=== PATIENT | female | born 1995 | race Caucasian/White ===

== ENCOUNTER 2017-07-04 21:22 | Emergency (ER) | payer OTHER ==
[~2017-07-04] VITALS: Ht 165.1 cm; Wt 86.2 kg
[~2017-07-04 21:22] MED LIST: ACETAMINOPHEN500 MG PO; ACYC400 PO; AMOCLA875 PO; ASPI81CH PO; Amoxicillin500 MG PO; Ativan1 MG PO; BCP'S; BIRTH CONTROL; BIRTH CONTROL PATCH; BRAIN MIGHT-DH1 EACH PO; BUSP5 PO; Bentyl20 MG PO; CEPH500 PO; CIPR500 PO; CLON.5 PO; CODACE30 PO; CRUTCH2 USE; CYCL10 PO; DIPATR PO; DIPH50 PO; DULO30 PO; Doxycycline Mon50 MG PO; ESCI10 PO; ESCI20 PO; FERR325 PO; FURO20 PO; HYDACE5 PO; HYDACE5325 PO; HYDCOR1TC TOP; IBUP400 PO; IBUP600 PO; IBUP800 PO; IRON DAILY; IRON TABS; IRON150C; IRON150C PO; LEVSOD150 PO; META800 PO; MULVITA PO; MULVITMINE PO; NAPR500; NAPR500 PO; NEOPOLHCSU OT; NORETHTP TOP; Naprosyn500 MG PO; Norco 5-325 Ta1 EACH PO; OMEP20ER PO; OMEP40CA12 PO; ONDA4 PO; ONDA4ODT MM; ONDA8ODT MM; OXYACE5T PO; PENVK500 PO; POTA8 PO; PREN-16 PO; PROM25 PO; PROM25S PR; Percocet 5-3251 EACH PO; RANI150 PO; RXCODACET PO; RXHYD5325 PO; RXNEOPOLHC AD; RXOXYACE PO; RXPROM25 PO; SERT100; SERT50 PO; TRAM50 PO; TRAZ50 PO; Veetids 500500 MG PO; Verotin-Gr Cap1 EACH PO; Zofran Odt4 MG SL
[2017-07-04] MEDS ORDERED: PSEU120ER PO (22:42)
[2017-07-05] MEDS ORDERED: CEPH500 PO (16:15)
== END 2017-07-04 22:58 | disposition home or self-care (01) ==
LOC: ER 21:22
DX: J01.00 Acute maxillary sinusitis, unspecified (principal); Z88.8 Allergy status to other drugs, medicaments and biological substances
CPT/HCPCS: 96372; 99283; J1885; Q0163

== ENCOUNTER 2017-07-05 12:28 | Emergency (ER) | payer OTHER ==
[~2017-07-05] VITALS: Ht 165.1 cm; Wt 86.2 kg
[~2017-07-05 12:28] MED LIST changes: +PSEU120ER PO
[2017-07-05 15:14] LABS: BASOPHILS ABSOLUTE AUTO 0.02 K/mm3 (0.00-0.23); BASOPHILS PERCENT AUTO 0 % (0-2); EOSINOPHILS ABSOLUTE AUTO 0.08 K/mm3 (0.00-0.68); EOSINOPHILS PERCENT AUTO 1 % (0-6); Hematocrit 35.5 % (33.0-51.0); Hemoglobin 11.3 g/dL (11.5-16.0); IMMATURE GRAN ABSOLUTE AUTO 0.02 K/mm3 (0.00-0.10); IMMATURE GRAN PERCENT AUTO 0 % (0-1); LYMPHOCYTES ABSOLUTE AUTO 1.78 K/mm3 (0.84-5.20); LYMPHOCYTES PERCENT AUTO 27 % (21-46); MONOCYTES ABSOLUTE AUTO 0.38 K/mm3 (0.16-1.47); MONOCYTES PERCENT AUTO 6 % (4-13); Mean Corpuscular HGB 27.8 pg (26.0-34.0); Mean Corpuscular HGB Conc 31.8 g/dL (31.5-36.5); Mean Corpuscular Volume 87 fL (80-100); Mean Platelet Volume 9.7 fL (9.1-12.4); NEUTROPHILS ABSOLUTE AUTO 4.38 K/mm3 (1.96-9.15); NEUTROPHILS PERCENT AUTO 66 % (41-73); Platelet Count 398 K/mm3 (150-400); RDW Standard Deviation 41.9 fL (35.1-46.3); Red Blood Cell Count 4.06 M/mm3 (3.80-5.20); White Blood Cell Count 6.66 K/mm3 (4.00-11.30)
[2017-07-05 15:24] LABS: Anion Gap 4 mmol/L (6-16); Blood Urea Nitrogen 6 mg/dL (8-24); Bun/Creatinine Ratio 10.7 (12.0-20.0); CO2, Blood 27 mmol/L (21-32); Calcium, Blood 8.7 mg/dL (8.5-10.1); Chloride, Blood 112 mmol/L (98-108); Creatinine, Blood 0.56 mg/dL (0.40-1.00); Glomerular Filtration Rate >60 (60-); Glucose, Blood 81 mg/dL (70-99); Potassium, Blood 3.9 mmol/L (3.5-5.5); Sodium, Blood 143 mmol/L (136-145)
[2017-07-05] MEDS ORDERED: CEPH500 PO (16:15)
== END 2017-07-05 16:43 | disposition home or self-care (01) ==
LOC: ER 12:28
PROVIDERS: Physician Assistant
DX: L03.211 Cellulitis of face (principal); K02.9 Dental caries, unspecified; Z88.8 Allergy status to other drugs, medicaments and biological substances
CPT/HCPCS: 70487; 80048; 85025; 96361; 96374; 99284; J1885; J7030; Q9967

== ENCOUNTER → 2017-07-25 | Outpatient (CLI) | payer OTHER | END | disposition home or self-care (01) | LOC: LAB EV 12:00 → LAB SHORT 12:00 | DX: J02.9 Acute pharyngitis, unspecified (principal) | CPT/HCPCS: 87070 ==

== ENCOUNTER 2017-08-27 17:32 | Emergency (ER) | payer OTHER ==
[~2017-08-27] VITALS: Ht 165.1 cm; Wt 91.6 kg
[2017-08-27 18:25] LABS: BASOPHILS ABSOLUTE AUTO 0.03 K/mm3 (0.00-0.23); BASOPHILS PERCENT AUTO 0 % (0-2); EOSINOPHILS ABSOLUTE AUTO 0.06 K/mm3 (0.00-0.68); EOSINOPHILS PERCENT AUTO 1 % (0-6); Hematocrit 34.8 % (33.0-51.0); Hemoglobin 11.2 g/dL (11.5-16.0); IMMATURE GRAN ABSOLUTE AUTO 0.01 K/mm3 (0.00-0.10); IMMATURE GRAN PERCENT AUTO 0 % (0-1); LYMPHOCYTES ABSOLUTE AUTO 1.97 K/mm3 (0.84-5.20); LYMPHOCYTES PERCENT AUTO 22 % (21-46); MONOCYTES ABSOLUTE AUTO 0.55 K/mm3 (0.16-1.47); MONOCYTES PERCENT AUTO 6 % (4-13); Mean Corpuscular HGB 26.4 pg (26.0-34.0); Mean Corpuscular HGB Conc 32.2 g/dL (31.5-36.5); NEUTROPHILS ABSOLUTE AUTO 6.26 K/mm3 (1.96-9.15); NEUTROPHILS PERCENT AUTO 71 % (41-73); Platelet Count 342 K/mm3 (150-400); RDW Coefficient Variation 13.5 % (11.7-14.2); RDW Standard Deviation 40.1 fL (35.1-46.3); Red Blood Cell Count 4.24 M/mm3 (3.80-5.20); White Blood Cell Count 8.88 K/mm3 (4.00-11.30)
[2017-08-27 18:30] LABS: Mean Corpuscular Volume 82 fL (80-100)
[2017-08-27 18:51] LABS: Source, Urine Clean Catch
[2017-08-27 18:52] LABS: Alanine Aminotransfer (ALT/SGP 19 U/L (12-78); Albumin, Blood 4.1 g/dL (3.4-5.0); Alk Phos 78 U/L (50-136); Anion Gap 11 mmol/L (6-16); Aspartate Aminotrans (AST/SGOT 17 U/L (12-37); Bilirubin, Total 0.3 mg/dL (0.1-1.0); Blood Urea Nitrogen 6 mg/dL (8-24); Bun/Creatinine Ratio 12.3 (12.0-20.0); CO2, Blood 24 mmol/L (21-32); Calcium, Blood 9.1 mg/dL (8.5-10.1); Chloride, Blood 105 mmol/L (98-108); Creatinine, Blood 0.49 mg/dL (0.40-1.00); Globulin, Blood 4.1 g/dL (2.2-4.0); Glomerular Filtration Rate >60 (60-); Glucose, Blood 79 mg/dL (70-99); Potassium, Blood 3.2 mmol/L (3.5-5.5); Sodium, Blood 140 mmol/L (136-145); Total Protein, Blood 8.2 g/dL (6.4-8.2)
[2017-08-27 18:53] LABS: Bilirubin, Urine Neg (Neg); Blood, Urine 2+ (Neg); Glucose Qualitative, Urine Neg (Neg); Ketones, Urine 1+ (Neg); Leukocyte Esterase, Urine Neg (Neg); Nitrite, Urine Neg (Neg); Protein, Urine 1+ (Neg); Specific Gravity, Urine 1.025 (1.003-1.022); Urobilinogen, Urine NORM (Normal)
[2017-08-27 19:02] LABS: Appearance, Urine Cloudy (Clear); Color, Urine Yellow (P-Yellow)
[2017-08-27 19:03] LABS: Mucus Light (0-Heavy)
[2017-08-27 19:04] LABS: Bacteria Rare /hpf; Red Blood Cells, Urine 0-2 /hpf (0-2); Squamous Epithelial Cells Few /hpf (Few); White Blood Cells, Urine 0-2 /hpf (0-5)
[2017-08-27 19:17] LABS: Beta HCG, Quantitative, Serum 58324 mIU/mL (0-3)
== END 2017-08-27 22:15 | disposition home or self-care (01) ==
LOC: ER 17:32
PROVIDERS: Internal Medicine
DX: O20.9 Hemorrhage in early pregnancy, unspecified (principal); Z88.8 Allergy status to other drugs, medicaments and biological substances; Z3A.08 8 weeks gestation of pregnancy
CPT/HCPCS: 36415; 76801; 80053; 81001; 84702; 85025; 86900; 86901; 99284

== ENCOUNTER 2017-10-07 22:29 | Emergency (ER) | payer OTHER ==
[~2017-10-07] VITALS: Ht 165.1 cm; Wt 90.7 kg
[~2017-10-07 22:29] MED LIST changes: -IRON INFUSIONS
[2017-10-07] MEDS ORDERED: IRON INFUSIONS (22:51)
[2017-10-07 23:34] LABS: BASOPHILS ABSOLUTE AUTO 0.03 K/mm3 (0.00-0.23); BASOPHILS PERCENT AUTO 0 % (0-2); EOSINOPHILS ABSOLUTE AUTO 0.11 K/mm3 (0.00-0.68); EOSINOPHILS PERCENT AUTO 2 % (0-6); Hematocrit 32.8 % (33.0-51.0); Hemoglobin 10.6 g/dL (11.5-16.0); IMMATURE GRAN ABSOLUTE AUTO 0.01 K/mm3 (0.00-0.10); IMMATURE GRAN PERCENT AUTO 0 % (0-1); LYMPHOCYTES ABSOLUTE AUTO 2.24 K/mm3 (0.84-5.20); LYMPHOCYTES PERCENT AUTO 30 % (21-46); MONOCYTES ABSOLUTE AUTO 0.38 K/mm3 (0.16-1.47); MONOCYTES PERCENT AUTO 5 % (4-13); Mean Corpuscular HGB Conc 32.3 g/dL (31.5-36.5); Mean Corpuscular Volume 84 fL (80-100); NEUTROPHILS ABSOLUTE AUTO 4.65 K/mm3 (1.96-9.15); NEUTROPHILS PERCENT AUTO 63 % (41-73); Platelet Count 291 K/mm3 (150-400); RDW Standard Deviation 45.5 fL (35.1-46.3); Red Blood Cell Count 3.92 M/mm3 (3.80-5.20); White Blood Cell Count 7.42 K/mm3 (4.00-11.30)
[2017-10-07 23:53] LABS: Anion Gap 10 mmol/L (6-16); Blood Urea Nitrogen 5 mg/dL (8-24); Bun/Creatinine Ratio 13.5 (12.0-20.0); CO2, Blood 22 mmol/L (21-32); Calcium, Blood 8.5 mg/dL (8.5-10.1); Chloride, Blood 109 mmol/L (98-108); Creatinine, Blood 0.37 mg/dL (0.40-1.00); Glomerular Filtration Rate >60 (60-); Glucose, Blood 83 mg/dL (70-99); Potassium, Blood 3.2 mmol/L (3.5-5.5); Sodium, Blood 141 mmol/L (136-145)
[2017-10-08 00:37] LABS: Source, Urine Clean Catch
[2017-10-08 00:45] LABS: Bilirubin, Urine Neg (Neg); Blood, Urine 1+ (Neg); Glucose Qualitative, Urine Neg (Neg); Ketones, Urine Neg (Neg); Leukocyte Esterase, Urine Neg (Neg); Nitrite, Urine Neg (Neg); Protein, Urine 1+ (Neg); Specific Gravity, Urine 1.025 (1.003-1.022); Urobilinogen, Urine NORM (Normal)
[2017-10-08 00:47] LABS: Appearance, Urine Clear (Clear); Color, Urine Yellow (P-Yellow)
[2017-10-08 01:04] LABS: Bacteria Rare /hpf; Red Blood Cells, Urine 0-2 /hpf (0-2); Squamous Epithelial Cells Few /hpf (Few); White Blood Cells, Urine Rare /hpf (0-5)
[2017-10-09] MEDS ORDERED: CYCL10 PO (20:44)
[2017-10-09] MEDS ORDERED: Verotin-Gr Cap1 EACH PO (20:44)
== END 2017-10-08 01:26 | disposition home or self-care (01) ==
LOC: ER 22:29
PROVIDERS: Emergency Medicine
DX: O99.281 Endocrine, nutritional and metabolic diseases complicating pregnancy, first trimester (principal); E87.6 Hypokalemia; E86.0 Dehydration; Z3A.14 14 weeks gestation of pregnancy; Z88.8 Allergy status to other drugs, medicaments and biological substances; Z79.899 Other long term (current) drug therapy
CPT/HCPCS: 36415; 80048; 81001; 85025; 96360; 99284-25; J7030

== ENCOUNTER → 2017-10-07 | Outpatient (CLI) | payer OTHER ==
[~2017-10-07] MED LIST changes: +IRON INFUSIONS
== END | disposition home or self-care (01) ==
LOC: LAB 13:05 → LAB SHORT 13:05
DX: D50.9 Iron deficiency anemia, unspecified (principal)
CPT/HCPCS: 82607; 82746

== ENCOUNTER 2017-10-09 20:24 | Emergency (ER) | payer OTHER ==
[~2017-10-09] VITALS: Ht 162.6 cm; Wt 90.3 kg
[~2017-10-09 20:24] MED LIST changes: +IRON INFUSIONS
[2017-10-09] MEDS ORDERED: Verotin-Gr Cap1 EACH PO (20:44)
[2017-10-09] MEDS ORDERED: CYCL10 PO (20:44)
== END 2017-10-09 21:42 | disposition home or self-care (01) ==
LOC: ER 20:24
DX: O9A.212 Injury, poisoning and certain other consequences of external causes complicating pregnancy, second trimester (principal); S60.221A Contusion of right hand, initial encounter; Z88.8 Allergy status to other drugs, medicaments and biological substances; Z79.899 Other long term (current) drug therapy; Z3A.14 14 weeks gestation of pregnancy; W01.0XXA Fall on same level from slipping, tripping and stumbling without subsequent striking against object, initial encounter; Y92.002 Bathroom of unspecified non-institutional (private) residence as the place of occurrence of the external cause
CPT/HCPCS: 73130

== ENCOUNTER 2017-11-08 15:02 | Emergency (ER) | payer OTHER ==
[~2017-11-08] VITALS: Ht 162.6 cm; Wt 90.7 kg
[2017-11-08 16:23] LABS: Hematocrit 35.3 % (33.0-51.0); Hemoglobin 11.7 g/dL (11.5-16.0); Mean Corpuscular HGB 28.5 pg (26.0-34.0); Mean Corpuscular HGB Conc 33.1 g/dL (31.5-36.5); Mean Corpuscular Volume 86 fL (80-100); Mean Platelet Volume 9.9 fL (9.1-12.4); Platelet Count 269 K/mm3 (150-400); RDW Coefficient Variation 15.6 % (11.7-14.2); White Blood Cell Count 8.52 K/mm3 (4.00-11.30)
[2017-11-08 16:38] LABS: Anion Gap 10 mmol/L (6-16); Blood Urea Nitrogen 4 mg/dL (8-24); Bun/Creatinine Ratio 10.9 (12.0-20.0); CO2, Blood 22 mmol/L (21-32); Calcium, Blood 8.6 mg/dL (8.5-10.1); Chloride, Blood 106 mmol/L (98-108); Creatinine, Blood 0.37 mg/dL (0.40-1.00); Glomerular Filtration Rate >60 (60-); Glucose, Blood 75 mg/dL (70-99); Potassium, Blood 3.6 mmol/L (3.5-5.5); Sodium, Blood 138 mmol/L (136-145); Troponin I <0.015 ng/mL (0.000-0.040)
== END 2017-11-08 16:54 | disposition home or self-care (01) ==
LOC: ER 15:02
PROVIDERS: Emergency Medicine
DX: R07.9 Chest pain, unspecified (principal)
CPT/HCPCS: 36415; 80048; 84484; 85027; 93005; 93010; 99285-25

== ENCOUNTER 2017-12-23 20:57 | Emergency (ER) | payer OTHER ==
[~2017-12-23] VITALS: Ht 160 cm; Wt 90.7 kg
[~2017-12-23 20:57] MED LIST changes: +Augmentin 875-1 EACH PO; +LORA.5
== END 2017-12-23 23:39 | disposition home or self-care (01) ==
LOC: BC 20:57 → ER 20:57
DX: O99.89 Other specified diseases and conditions complicating pregnancy, childbirth and the puerperium (principal); M79.89 Other specified soft tissue disorders; O99.342 Other mental disorders complicating pregnancy, second trimester; F32.9 Major depressive disorder, single episode, unspecified; F41.9 Anxiety disorder, unspecified; Z88.8 Allergy status to other drugs, medicaments and biological substances; Z79.899 Other long term (current) drug therapy; Z3A.21 21 weeks gestation of pregnancy
CPT/HCPCS: 81003; 93971; 99284-25

== ENCOUNTER 2018-03-29 05:18 | Inpatient (IN) | payer OTHER ==
[~2018-03-29] VITALS: Ht 162.6 cm; Wt 96.6 kg
[~2018-03-29 05:18] MED LIST changes: +Bactrim Ds Tab1 EACH PO; +FLUO10 PO; +Zithromax250 MG PO
[2018-03-29 06:40] LABS: BASOPHILS ABSOLUTE AUTO 0.04 K/mm3 (0.00-0.23); BASOPHILS PERCENT AUTO 0 % (0-2); EOSINOPHILS ABSOLUTE AUTO 0.51 K/mm3 (0.00-0.68); EOSINOPHILS PERCENT AUTO 4 % (0-6); Hematocrit 33.9 % (33.0-51.0); Hemoglobin 10.9 g/dL (11.5-16.0); IMMATURE GRAN ABSOLUTE AUTO 0.03 K/mm3 (0.00-0.10); IMMATURE GRAN PERCENT AUTO 0 % (0-1); LYMPHOCYTES PERCENT AUTO 23 % (21-46); MONOCYTES ABSOLUTE AUTO 0.98 K/mm3 (0.16-1.47); MONOCYTES PERCENT AUTO 8 % (4-13); Mean Corpuscular HGB 27.5 pg (26.0-34.0); Mean Corpuscular HGB Conc 32.2 g/dL (31.5-36.5); Mean Corpuscular Volume 86 fL (80-100); Mean Platelet Volume 11.2 fL (9.1-12.4); NEUTROPHILS ABSOLUTE AUTO 7.95 K/mm3 (1.96-9.15); NEUTROPHILS PERCENT AUTO 64 % (41-73); Platelet Count 426 K/mm3 (150-400); RDW Coefficient Variation 13.3 % (11.7-14.2); RDW Standard Deviation 42.3 fL (35.1-46.3); Red Blood Cell Count 3.96 M/mm3 (3.80-5.20); White Blood Cell Count 12.41 K/mm3 (4.00-11.30)
--- NOTE | 2018-03-29 08:29 | NUR ---
03/29/18 0829 Sravanthi Stokes Kit BABY BOY BORN 0814 FIRST AND SECOND 9 9. CORD BLOOD GIVEN TO NEWTON ROSAS FBP. DR BAXTER DID NOT DESIRE A SEGMENT OF CORD TO BE SENT WITH RT.
--- NOTE | 2018-03-29 10:39 | NUR ---
CONSULT, BABY IS ONLY A FEW HOURS OLD, BFW AFTER AND IS CURRENTLY ASLEEP SKIN TO SKIN ON MOMS CHEST. SHE HAS A HISTORY OF ONLY BF HER BABY'S ABOUT 1 MONTH OR LESS, AND WOULD LIKE TO BF THIS BABY LONGER. INSTRUCT IN CHANGES TO EXPECT DURING THIS FIRST WEEK WITH FEEDINGS AND WITH BABY AND REFERRED TO BF BROCHURE FOR PHOTOS AND INFORMATION. WILL TRY AND CHECK IN WITH MOM LATER TODAY TO SEE HOW HE IS LATCHING FOR HER. DENIES ANY QUESTIONS CURRENTLY.
--- NOTE | 2018-03-29 12:44 | NUR ---
PT WRITHING IN PAIN. STATES IT REMAINS AT 10/10 EVEN THOUGH SHE HAD MORPHINE. DR BAXTER UPDATED. ROXICODONE GIVEN. HEATING PAD GIVEN.
--- NOTE | 2018-03-29 15:36 | NUR ---
DR BAXTER UPDATED ON PT PAIN. SHE REPORTS IT GETTING A TINY BIT BETTER EACH TIME I ASK HER TO RATE IT. IT IS NOW 10/06. DISCUSSED HER OPTIONS, AND SHE DOES NOT WANT A SIX SIGMA BLACK TRAINER. SHE THINKS THE MORPHINE DOES HELP AND WOULD LIKE TO TRY ONE MORE DOSE OF THAT, THEN STICK WITH THE PERCOCET AND SUE ALTERNATING.
--- NOTE | 2018-03-29 18:38 | NUR ---
REPORT TO ONCOMING SHIFT
[2018-03-30 05:50] LABS: Hematocrit 33.4 % (33.0-51.0); Hemoglobin 10.3 g/dL (11.5-16.0); Mean Corpuscular HGB 26.9 pg (26.0-34.0); Mean Corpuscular HGB Conc 30.8 g/dL (31.5-36.5); Mean Corpuscular Volume 87 fL (80-100); Mean Platelet Volume 10.7 fL (9.1-12.4); Platelet Count 357 K/mm3 (150-400); RDW Coefficient Variation 13.8 % (11.7-14.2); RDW Standard Deviation 43.8 fL (35.1-46.3); Red Blood Cell Count 3.83 M/mm3 (3.80-5.20); White Blood Cell Count 12.73 K/mm3 (4.00-11.30)
--- NOTE | 2018-03-30 10:13 | NUR ---
OUTER DRESSING REMOVED FROM [facility] INCISION. STERI STRIPS INTACT. AREA CLEAN DRY AND INTACT.
--- NOTE | 2018-03-30 13:56 | NUR ---
PT REPORTS PAIN UNDER CONTROL 07/07 DOES NOT REQUEST ANY PAIN MEDICATION AT THIS TIME. PT HAS BEEN RESTING. LIGHTS LOW IN ROOM AND ROOM IS QUIET
--- NOTE | 2018-03-30 15:09 | NUR ---
REPORT TO ALISON BENJAMIN
--- NOTE | 2018-03-30 19:30 | NUR ---
PT AMBULATING IN [place]. TOLERATED WELL
--- NOTE | 2018-03-30 20:30 | NUR ---
PT UP IN [place] AMBULATING. TOLERATED WELL
[2018-03-31] MEDS ORDERED: IBUP800 PO (08:12)
[2018-03-31] MEDS ORDERED: Percocet 5-3251 EACH PO (08:13)
--- NOTE | 2018-03-31 09:54 | NUR ---
ASSUMED CARE. WORKING ON D/C.
--- NOTE | 2018-03-31 10:50 | NUR ---
PT D/C HOME, AMBULATING WITHOUT DIFFICULTY.
== END 2018-03-31 10:50 | disposition home or self-care (01) | DRG 784 ==
LOC: BC 05:18
PROVIDERS: ADMIT Obstetrics & Gynecology
PROC: 10D00Z1 Extraction of Products of Conception, Low, Open Approach (ICD-10-PCS; principal; 2018-03-29 07:30)
PROC: 0UT70ZZ Resection of Bilateral Fallopian Tubes, Open Approach (ICD-10-PCS; 2018-03-29 07:30)
DX: O34.211 Maternal care for low transverse scar from previous cesarean delivery (principal); O98.32 Other infections with a predominantly sexual mode of transmission complicating childbirth; A60.00 Herpesviral infection of urogenital system, unspecified; Z30.2 Encounter for sterilization; Z3A.39 39 weeks gestation of pregnancy; Z37.0 Single live birth
CPT/HCPCS: 36415; 85025; 85027; 86850; 86900; 86901; 88302; J0690; J1885; J2270; J2590; J2765; J3010; J7120

== ENCOUNTER 2018-05-08 14:29 | Emergency (ER) | payer OTHER ==
[~2018-05-08] VITALS: Ht 162.6 cm; Wt 90.7 kg
[2018-05-08] MEDS ORDERED: Amoxicillin500 MG PO (15:36)
[2018-05-08] MEDS ORDERED: Naprosyn500 MG PO (15:36)
== END 2018-05-08 15:41 | disposition home or self-care (01) ==
LOC: ER 14:29
DX: R68.84 Jaw pain (principal); H53.9 Unspecified visual disturbance; F32.9 Major depressive disorder, single episode, unspecified; F41.9 Anxiety disorder, unspecified; Z88.8 Allergy status to other drugs, medicaments and biological substances; Z79.899 Other long term (current) drug therapy
CPT/HCPCS: 99283

== ENCOUNTER 2018-06-13 11:05 | Emergency (ER) | payer OTHER ==
[~2018-06-13] VITALS: Ht 165.1 cm; Wt 200.0 kg
[2018-06-13] MEDS ORDERED: Percocet 5-3251 EACH PO (12:43)
== END 2018-06-13 12:56 | disposition home or self-care (01) ==
LOC: ER 11:05
DX: S62.660A Nondisplaced fracture of distal phalanx of right index finger, initial encounter for closed fracture (principal); W22.8XXA Striking against or struck by other objects, initial encounter; Z88.8 Allergy status to other drugs, medicaments and biological substances; Z79.899 Other long term (current) drug therapy; F43.10 Post-traumatic stress disorder, unspecified; F32.9 Major depressive disorder, single episode, unspecified
CPT/HCPCS: 29130; 73140; 99283-25

== ENCOUNTER 2018-07-19 09:54 | Emergency (ER) | payer OTHER ==
[~2018-07-19] VITALS: Ht 165.1 cm; Wt 99.8 kg
[2018-07-19] MEDS ORDERED: Bactrim Ds Tab1 EACH PO (10:20)
[2018-07-19] MEDS ORDERED: CEPH500 PO (10:20)
== END 2018-07-19 10:33 | disposition home or self-care (01) ==
LOC: ER 09:54
DX: L02.412 Cutaneous abscess of left axilla (principal); F41.9 Anxiety disorder, unspecified; F32.9 Major depressive disorder, single episode, unspecified; R56.9 Unspecified convulsions; Z88.8 Allergy status to other drugs, medicaments and biological substances; Z79.899 Other long term (current) drug therapy
CPT/HCPCS: 99283

== ENCOUNTER 2018-08-14 00:58 | Emergency (ER) | payer OTHER ==
[~2018-08-14] VITALS: Ht 162.6 cm; Wt 99.8 kg
[2018-08-14] MEDS ORDERED: DIAZ5 PO (01:18)
== END 2018-08-14 02:55 | disposition home or self-care (01) ==
LOC: ER 00:58
DX: S93.402A Sprain of unspecified ligament of left ankle, initial encounter (principal); W11.XXXA Fall on and from ladder, initial encounter; Z88.8 Allergy status to other drugs, medicaments and biological substances; Z79.899 Other long term (current) drug therapy; F41.9 Anxiety disorder, unspecified
CPT/HCPCS: 29515; 72170; 73610; 73630; 99283-25

== ENCOUNTER 2018-12-19 09:45 | Emergency (ER) | payer OTHER ==
[~2018-12-19] VITALS: Ht 160 cm; Wt 99.8 kg
[~2018-12-19 09:45] MED LIST changes: +DIAZ5 PO
[2018-12-19] MEDS ORDERED: BENZ100A PO (10:47)
[2018-12-19] MEDS ORDERED: ALBU90OI INH (10:47)
[2018-12-19] MEDS ORDERED: Cheratussin AC118 ML PO (10:47)
== END 2018-12-19 11:01 | disposition home or self-care (01) ==
LOC: ER 09:45
DX: J06.9 Acute upper respiratory infection, unspecified (principal); F43.10 Post-traumatic stress disorder, unspecified; F41.9 Anxiety disorder, unspecified; F32.9 Major depressive disorder, single episode, unspecified; Z88.8 Allergy status to other drugs, medicaments and biological substances; Z79.899 Other long term (current) drug therapy
CPT/HCPCS: 99283

== ENCOUNTER 2019-01-16 13:02 | Emergency (ER) | payer OTHER ==
[~2019-01-16] VITALS: Ht 165.1 cm; Wt 103.4 kg
[2019-01-16] MEDS ORDERED: DIAZ5 PO (13:36)
[2019-01-16 13:38] LABS: BASOPHILS ABSOLUTE AUTO 0.03 K/mm3 (0.00-0.23); BASOPHILS PERCENT AUTO 1 % (0-2); EOSINOPHILS ABSOLUTE AUTO 0.13 K/mm3 (0.00-0.68); EOSINOPHILS PERCENT AUTO 2 % (0-6); Hematocrit 34.4 % (33.0-51.0); Hemoglobin 10.6 g/dL (11.5-16.0); IMMATURE GRAN ABSOLUTE AUTO 0.02 K/mm3 (0.00-0.10); IMMATURE GRAN PERCENT AUTO 0 % (0-1); LYMPHOCYTES ABSOLUTE AUTO 1.82 K/mm3 (0.84-5.20); LYMPHOCYTES PERCENT AUTO 28 % (21-46); MONOCYTES ABSOLUTE AUTO 0.44 K/mm3 (0.16-1.47); MONOCYTES PERCENT AUTO 7 % (4-13); Mean Corpuscular HGB 25.7 pg (26.0-34.0); Mean Corpuscular HGB Conc 30.8 g/dL (31.5-36.5); Mean Corpuscular Volume 84 fL (80-100); Mean Platelet Volume 9.3 fL (9.1-12.4); NEUTROPHILS ABSOLUTE AUTO 4.14 K/mm3 (1.96-9.15); NEUTROPHILS PERCENT AUTO 63 % (41-73); Platelet Count 417 K/mm3 (150-400); RDW Coefficient Variation 13.8 % (11.7-14.2); RDW Standard Deviation 42.3 fL (35.1-46.3); Red Blood Cell Count 4.12 M/mm3 (3.80-5.20); White Blood Cell Count 6.58 K/mm3 (4.00-11.30)
[2019-01-16 13:48] LABS: Alanine Aminotransfer (ALT/SGP 23 U/L (12-78); Albumin/Globulin Ratio 0.9 (0.8-1.8); Alk Phos 115 U/L (50-136); Anion Gap 6 mmol/L (6-16); Aspartate Aminotrans (AST/SGOT 19 U/L (12-37); Bilirubin, Total 0.1 mg/dL (0.1-1.0); Blood Urea Nitrogen 11 mg/dL (8-24); Bun/Creatinine Ratio 19.3 (12.0-20.0); CO2, Blood 29 mmol/L (21-32); Calcium, Blood 9.3 mg/dL (8.5-10.1); Chloride, Blood 104 mmol/L (98-108); Creatinine, Blood 0.57 mg/dL (0.40-1.00); Globulin, Blood 4.4 g/dL (2.2-4.0); Glomerular Filtration Rate >60 (60-); Glucose, Blood 83 mg/dL (70-99); Potassium, Blood 3.9 mmol/L (3.5-5.5); Sodium, Blood 139 mmol/L (136-145); Total Protein, Blood 8.4 g/dL (6.4-8.2)
== END 2019-01-16 14:37 | disposition home or self-care (01) ==
LOC: ER 13:02
PROVIDERS: Internal Medicine
DX: R56.9 Unspecified convulsions (principal); Z88.8 Allergy status to other drugs, medicaments and biological substances; Z79.899 Other long term (current) drug therapy
CPT/HCPCS: 80053; 82947; 85025; 93005; 93010; 99285-25

== ENCOUNTER → 2019-01-16 | Outpatient (CLI) | payer OTHER ==
[~2019-01-16] MED LIST changes: +ALBU90OI INH; +BENZ100A PO; +Cheratussin AC118 ML PO
[2019-01-16 12:08] LABS: BASOPHILS ABSOLUTE AUTO 0.04 K/mm3 (0.00-0.23); BASOPHILS PERCENT AUTO 1 % (0-2); EOSINOPHILS ABSOLUTE AUTO 0.17 K/mm3 (0.00-0.68); EOSINOPHILS PERCENT AUTO 3 % (0-6); Hematocrit 33.2 % (33.0-51.0); Hemoglobin 10.8 g/dL (11.5-16.0); IMMATURE GRAN ABSOLUTE AUTO 0.01 K/mm3 (0.00-0.10); IMMATURE GRAN PERCENT AUTO 0 % (0-1); LYMPHOCYTES ABSOLUTE AUTO 2.27 K/mm3 (0.84-5.20); LYMPHOCYTES PERCENT AUTO 34 % (21-46); MONOCYTES ABSOLUTE AUTO 0.51 K/mm3 (0.16-1.47); MONOCYTES PERCENT AUTO 8 % (4-13); Mean Corpuscular HGB 26.7 pg (26.0-34.0); Mean Corpuscular HGB Conc 32.5 g/dL (31.5-36.5); Mean Corpuscular Volume 82 fL (80-100); Mean Platelet Volume 9.2 fL (9.1-12.4); NEUTROPHILS ABSOLUTE AUTO 3.69 K/mm3 (1.96-9.15); NEUTROPHILS PERCENT AUTO 55 % (41-73); Platelet Count 431 K/mm3 (150-400); RDW Coefficient Variation 13.7 % (11.7-14.2); RDW Standard Deviation 40.8 fL (35.1-46.3); Red Blood Cell Count 4.05 M/mm3 (3.80-5.20); White Blood Cell Count 6.69 K/mm3 (4.00-11.30)
[2019-01-16 12:28] LABS: Alanine Aminotransfer (ALT/SGP 18 U/L (12-78); Albumin, Blood 3.9 g/dL (3.4-5.0); Albumin/Globulin Ratio 0.9 (0.8-1.8); Alk Phos 115 U/L (40-126); Anion Gap 6 mmol/L (6-16); Aspartate Aminotrans (AST/SGOT 19 U/L (12-37); Bilirubin, Total 0.2 mg/dL (0.1-1.0); Blood Urea Nitrogen 12 mg/dL (8-24); Bun/Creatinine Ratio 16.9 (12.0-20.0); CO2, Blood 29 mmol/L (21-32); CPK Creatine Kinase 63 U/L (26-192); Calcium, Blood 9.2 mg/dL (8.5-10.1); Chloride, Blood 103 mmol/L (98-108); Creatinine, Blood 0.71 mg/dL (0.40-1.00); Free Thyroxine 0.81 ng/dL (0.70-1.60); Globulin, Blood 4.4 g/dL (2.2-4.0); Glomerular Filtration Rate >60 (60-); Glucose, Blood 101 mg/dL (70-99); Sodium, Blood 138 mmol/L (136-145); Thyroid Stimulating Hormone 1.217 uIU/mL (0.360-4.800); Total Protein, Blood 8.3 g/dL (6.4-8.2)
[2019-01-16 12:36] LABS: Troponin I <0.017 ng/mL (0.000-0.040)
== END | disposition home or self-care (01) ==
LOC: LAB EV 12:01 → LAB SHORT 12:01
PROVIDERS: General Practice
DX: R07.9 Chest pain, unspecified (principal)
CPT/HCPCS: 80053; 82550; 82607; 82746; 84439; 84443; 84484; 85025

== ENCOUNTER 2019-05-29 22:29 | Emergency (ER) | payer OTHER ==
[~2019-05-29] VITALS: Ht 160 cm; Wt 99.8 kg
[~2019-05-29 22:29] MED LIST changes: +KETO10 PO; +PROC5 PO
[2019-05-30 00:24] LABS: BASOPHILS ABSOLUTE AUTO 0.01 K/mm3 (0.00-0.23); BASOPHILS PERCENT AUTO 0 % (0-2); EOSINOPHILS ABSOLUTE AUTO 0.31 K/mm3 (0.00-0.68); EOSINOPHILS PERCENT AUTO 4 % (0-6); Hematocrit 32.2 % (33.0-51.0); Hemoglobin 9.9 g/dL (11.5-16.0); IMMATURE GRAN ABSOLUTE AUTO 0.01 K/mm3 (0.00-0.10); IMMATURE GRAN PERCENT AUTO 0 % (0-1); LYMPHOCYTES ABSOLUTE AUTO 2.45 K/mm3 (0.84-5.20); LYMPHOCYTES PERCENT AUTO 32 % (21-46); MONOCYTES ABSOLUTE AUTO 0.41 K/mm3 (0.16-1.47); MONOCYTES PERCENT AUTO 5 % (4-13); Mean Corpuscular HGB 24.6 pg (26.0-34.0); Mean Corpuscular HGB Conc 30.7 g/dL (31.5-36.5); Mean Corpuscular Volume 80 fL (80-100); Mean Platelet Volume 9.9 fL (9.1-12.4); NEUTROPHILS ABSOLUTE AUTO 4.38 K/mm3 (1.96-9.15); NEUTROPHILS PERCENT AUTO 58 % (41-73); Platelet Count 342 K/mm3 (150-400); RDW Coefficient Variation 14.7 % (11.7-14.2); RDW Standard Deviation 42.9 fL (35.1-46.3); Red Blood Cell Count 4.03 M/mm3 (3.80-5.20); White Blood Cell Count 7.57 K/mm3 (4.00-11.30)
[2019-05-30 00:48] LABS: Alanine Aminotransfer (ALT/SGP 20 U/L (12-78); Albumin, Blood 3.7 g/dL (3.4-5.0); Alk Phos 92 U/L (50-136); Anion Gap 5 mmol/L (6-16); Aspartate Aminotrans (AST/SGOT 14 U/L (12-37); Bilirubin, Total 0.1 mg/dL (0.1-1.0); Blood Urea Nitrogen 11 mg/dL (8-24); CO2, Blood 27 mmol/L (21-32); Calcium, Blood 8.9 mg/dL (8.5-10.1); Chloride, Blood 108 mmol/L (98-108); Creatinine, Blood 0.65 mg/dL (0.40-1.00); Globulin, Blood 3.8 g/dL (2.2-4.0); Glomerular Filtration Rate >60 (60-); Glucose, Blood 87 mg/dL (70-99); Potassium, Blood 3.5 mmol/L (3.5-5.5); Sodium, Blood 140 mmol/L (136-145); Total Protein, Blood 7.5 g/dL (6.4-8.2)
== END 2019-05-30 02:09 | disposition home or self-care (01) ==
LOC: ER 22:29
PROVIDERS: Physician Assistant
DX: R10.13 Epigastric pain (principal); Z88.8 Allergy status to other drugs, medicaments and biological substances
CPT/HCPCS: 36415; 74176; 80053; 83690; 85025; 96372; 99284; A9270; J1885; J2550

== ENCOUNTER → 2019-09-15 | Outpatient (CLI) | payer OTHER ==
[2019-09-15 20:06] LABS: Protein, Urine Quantitative 17.3 mg/dL (0.0-11.9); Uric Acid, Urine 65.8 mg/dL (7.5-49.5)
[2019-09-15 20:16] LABS: Microalbumin, Urine Quant. 31.9 mg/L (0.000-20.000)
[2019-09-15 20:21] LABS: Calcium, Urine 14.9 mg/dL (< 17.5); Calcium, Urine Calculation 74.5 mg/24hrs (42.0-353.0)
[2019-09-15 20:23] LABS: Phosphorus, Urine >90.0 mg/dL (20.0-60.0)
== END | disposition home or self-care (01) ==
LOC: LAB 16:58 → LAB SHORT 16:58 → LAB FUT 09-08 15:10
PROVIDERS: Internal Medicine Nephrology
DX: N18.2 Chronic kidney disease, stage 2 (mild) (principal); D63.1 Anemia in chronic kidney disease; N25.81 Secondary hyperparathyroidism of renal origin; E55.9 Vitamin D deficiency, unspecified; E78.00 Pure hypercholesterolemia, unspecified; R76.9 Abnormal immunological finding in serum, unspecified; R94.5 Abnormal results of liver function studies; R94.6 Abnormal results of thyroid function studies; D50.9 Iron deficiency anemia, unspecified
CPT/HCPCS: 81050; 82043; 82131; 82340; 82507; 82570; 83945; 84105; 84133; 84156; 84300; 84560

== ENCOUNTER 2019-11-01 08:21 | Emergency (ER) | payer OTHER | END 2019-11-01 08:52 | disposition left against medical advice (07) | LOC: ER 08:21 | DX: Z53.21 Procedure and treatment not carried out due to patient leaving prior to being seen by health care provider (principal) ==

== ENCOUNTER → 2019-11-03 | Outpatient (CLI) | payer OTHER ==
[2019-11-03 15:04] LABS: Anion Gap 10 mmol/L (6-16); Blood Urea Nitrogen 6 mg/dL (8-24); Bun/Creatinine Ratio 9.2 (12.0-20.0); CO2, Blood 27 mmol/L (21-32); Calcium, Blood 9.2 mg/dL (8.5-10.1); Chloride, Blood 103 mmol/L (98-108); Creatinine, Blood 0.65 mg/dL (0.40-1.00); Glomerular Filtration Rate >60 (60-); Glucose, Blood 94 mg/dL (70-99); Potassium, Blood 3.1 mmol/L (3.5-5.5); Sodium, Blood 140 mmol/L (136-145)
== END | disposition home or self-care (01) ==
LOC: LAB EV 14:56 → LAB SHORT 14:56
PROVIDERS: Physician Assistant
DX: E86.0 Dehydration (principal)
CPT/HCPCS: 80048

== ENCOUNTER → 2020-02-10 | Outpatient (CLI) | payer OTHER ==
[2020-02-10 18:24] LABS: Albumin, Blood 4.1 g/dL (3.4-5.0); Anion Gap 4 mmol/L (6-16); Blood Urea Nitrogen 10 mg/dL (8-24); Bun/Creatinine Ratio 17.8 (12.0-20.0); CO2, Blood 29 mmol/L (21-32); Calcium, Blood 9.1 mg/dL (8.5-10.1); Chloride, Blood 111 mmol/L (98-108); Creatinine, Blood 0.56 mg/dL (0.40-1.00); Glomerular Filtration Rate >60 (60-); Glucose, Blood 82 mg/dL (70-99); Phosphorus, Blood 3.3 mg/dL (2.5-4.9); Potassium, Blood 4.3 mmol/L (3.5-5.5); Sodium, Blood 144 mmol/L (136-145)
== END | disposition home or self-care (01) ==
LOC: LAB SHORT 14:59 → LAB 14:59
PROVIDERS: Internal Medicine Nephrology
DX: N18.2 Chronic kidney disease, stage 2 (mild) (principal); D63.1 Anemia in chronic kidney disease; R31.9 Hematuria, unspecified; R76.9 Abnormal immunological finding in serum, unspecified; R94.5 Abnormal results of liver function studies; R94.6 Abnormal results of thyroid function studies; D51.8 Other vitamin B12 deficiency anemias; D52.8 Other folate deficiency anemias; D50.9 Iron deficiency anemia, unspecified
CPT/HCPCS: 80069; 82088; 82607; 82746; 83735; 85018

== ENCOUNTER 2020-11-07 10:10 | Emergency (ER) | payer OTHER ==
[~2020-11-07] VITALS: Ht 165.1 cm; Wt 75.8 kg
[2020-11-07 12:11] LABS: Source, Urine Clean Catch
[2020-11-07 12:18] LABS: BASOPHILS ABSOLUTE AUTO 0.02 K/mm3 (0.00-0.23); BASOPHILS PERCENT AUTO 0 % (0-2); EOSINOPHILS ABSOLUTE AUTO 0.07 K/mm3 (0.00-0.68); EOSINOPHILS PERCENT AUTO 1 % (0-6); Hematocrit 36.9 % (33.0-51.0); Hemoglobin 12.1 g/dL (11.5-16.0); IMMATURE GRAN ABSOLUTE AUTO 0.01 K/mm3 (0.00-0.10); IMMATURE GRAN PERCENT AUTO 0 % (0-1); LYMPHOCYTES ABSOLUTE AUTO 1.83 K/mm3 (0.84-5.20); LYMPHOCYTES PERCENT AUTO 31 % (21-46); MONOCYTES ABSOLUTE AUTO 0.35 K/mm3 (0.16-1.47); MONOCYTES PERCENT AUTO 6 % (4-13); Mean Corpuscular HGB 29.1 pg (26.0-34.0); Mean Corpuscular HGB Conc 32.8 g/dL (31.5-36.5); Mean Corpuscular Volume 89 fL (80-100); NEUTROPHILS PERCENT AUTO 61 % (41-73); Platelet Count 260 K/mm3 (150-400); RDW Coefficient Variation 13.5 % (11.7-14.2); Red Blood Cell Count 4.16 M/mm3 (3.80-5.20); White Blood Cell Count 5.88 K/mm3 (4.00-11.30)
[2020-11-07 12:28] LABS: Bilirubin, Urine Neg (Neg); Blood, Urine 1+ (Neg); Glucose Qualitative, Urine Neg (Neg); Ketones, Urine Neg (Neg); Leukocyte Esterase, Urine Neg (Neg); Nitrite, Urine Neg (Neg); Protein, Urine Neg (Neg); Urobilinogen, Urine NORM (Normal)
[2020-11-07 12:35] LABS: Appearance, Urine Hazy (Clear); Color, Urine Yellow (P-Yellow)
[2020-11-07 12:36] LABS: Bacteria Not Seen /hpf; Red Blood Cells, Urine 0-2 /hpf (0-2); Squamous Epithelial Cells Not Seen /hpf (Few); White Blood Cells, Urine Not Seen /hpf (0-5)
[2020-11-07 12:45] LABS: Alanine Aminotransfer (ALT/SGP 18 U/L (12-78); Albumin/Globulin Ratio 1.2 (0.8-1.8); Alk Phos 46 U/L (50-136); Anion Gap 2 mmol/L (6-16); Aspartate Aminotrans (AST/SGOT 11 U/L (12-37); Bilirubin, Total 0.3 mg/dL (0.1-1.0); Blood Urea Nitrogen 7 mg/dL (8-24); Bun/Creatinine Ratio 12.4 (12.0-20.0); CO2, Blood 27 mmol/L (21-32); Calcium, Blood 8.7 mg/dL (8.5-10.1); Chloride, Blood 109 mmol/L (98-108); Creatinine, Blood 0.56 mg/dL (0.40-1.00); Globulin, Blood 3.3 g/dL (2.2-4.0); Glomerular Filtration Rate >60 (60-); Glucose, Blood 81 mg/dL (70-99); Potassium, Blood 3.8 mmol/L (3.5-5.5); Sodium, Blood 138 mmol/L (136-145); Total Protein, Blood 7.3 g/dL (6.4-8.2)
== END 2020-11-07 14:23 | disposition home or self-care (01) ==
LOC: ER 10:10
PROVIDERS: Emergency Medicine
DX: R31.9 Hematuria, unspecified (principal); R10.84 Generalized abdominal pain; Z88.8 Allergy status to other drugs, medicaments and biological substances
CPT/HCPCS: 76770; 80053; 81001; 81025; 83690; 85025; 87086; 96361; 96374; 96375; 99284-25; J1885; J2405; J3010; J7030

== ENCOUNTER → 2021-07-04 | Outpatient (CLI) | payer OTHER ==
[2021-07-04 17:16] LABS: BASOPHILS ABSOLUTE AUTO 0.02 K/mm3 (0.00-0.23); BASOPHILS PERCENT AUTO 0 % (0-2); EOSINOPHILS ABSOLUTE AUTO 0.08 K/mm3 (0.00-0.68); EOSINOPHILS PERCENT AUTO 1 % (0-6); Hematocrit 32.5 % (33.0-51.0); Hemoglobin 10.5 g/dL (11.5-16.0); IMMATURE GRAN ABSOLUTE AUTO 0.01 K/mm3 (0.00-0.10); IMMATURE GRAN PERCENT AUTO 0 % (0-1); LYMPHOCYTES PERCENT AUTO 37 % (21-46); MONOCYTES ABSOLUTE AUTO 0.38 K/mm3 (0.16-1.47); MONOCYTES PERCENT AUTO 5 % (4-13); Mean Corpuscular HGB 28.8 pg (26.0-34.0); Mean Corpuscular HGB Conc 32.3 g/dL (31.5-36.5); Mean Corpuscular Volume 89 fL (80-100); Mean Platelet Volume 9.5 fL (9.1-12.4); NEUTROPHILS ABSOLUTE AUTO 4.12 K/mm3 (1.96-9.15); NEUTROPHILS PERCENT AUTO 56 % (41-73); Platelet Count 349 K/mm3 (150-400); RDW Coefficient Variation 12.3 % (11.7-14.2); Red Blood Cell Count 3.64 M/mm3 (3.80-5.20); White Blood Cell Count 7.31 K/mm3 (4.00-11.30)
[2021-07-04 17:29] LABS: Alanine Aminotransfer (ALT/SGP 18 U/L (12-78); Albumin, Blood 3.5 g/dL (3.4-5.0); Albumin/Globulin Ratio 1.1 (0.8-1.8); Alk Phos 50 U/L (40-126); Anion Gap 6 mmol/L (6-16); Aspartate Aminotrans (AST/SGOT 11 U/L (12-37); Bilirubin, Total 0.2 mg/dL (0.1-1.0); Blood Urea Nitrogen 7 mg/dL (8-24); Bun/Creatinine Ratio 12.1 (12.0-20.0); CO2, Blood 30 mmol/L (21-32); Calcium, Blood 8.3 mg/dL (8.5-10.1); Chloride, Blood 106 mmol/L (98-108); Creatinine, Blood 0.58 mg/dL (0.40-1.00); Globulin, Blood 3.2 g/dL (2.2-4.0); Glomerular Filtration Rate >60 (60-); Glucose, Blood 83 mg/dL (70-99); Sodium, Blood 142 mmol/L (136-145); Total Protein, Blood 6.7 g/dL (6.4-8.2)
== END | disposition home or self-care (01) ==
LOC: LAB SHORT 17:07
PROVIDERS: Physician Assistant
DX: R10.9 Unspecified abdominal pain (principal); R31.9 Hematuria, unspecified
CPT/HCPCS: 80053; 85025; 87086

== ENCOUNTER 2021-07-12 16:40 | Emergency (ER) | payer OTHER ==
[~2021-07-12] VITALS: Ht 162.6 cm; Wt 76.2 kg
[2021-07-12 17:33] LABS: BASOPHILS ABSOLUTE AUTO 0.02 K/mm3 (0.00-0.23); BASOPHILS PERCENT AUTO 0 % (0-2); EOSINOPHILS ABSOLUTE AUTO 0.03 K/mm3 (0.00-0.68); EOSINOPHILS PERCENT AUTO 0 % (0-6); Hematocrit 37.5 % (33.0-51.0); Hemoglobin 12.3 g/dL (11.5-16.0); IMMATURE GRAN ABSOLUTE AUTO 0.03 K/mm3 (0.00-0.10); IMMATURE GRAN PERCENT AUTO 0 % (0-1); LYMPHOCYTES ABSOLUTE AUTO 0.58 K/mm3 (0.84-5.20); LYMPHOCYTES PERCENT AUTO 7 % (21-46); MONOCYTES ABSOLUTE AUTO 0.44 K/mm3 (0.16-1.47); MONOCYTES PERCENT AUTO 5 % (4-13); Mean Corpuscular HGB Conc 32.8 g/dL (31.5-36.5); Mean Corpuscular Volume 88 fL (80-100); Mean Platelet Volume 9.3 fL (9.1-12.4); NEUTROPHILS ABSOLUTE AUTO 7.84 K/mm3 (1.96-9.15); NEUTROPHILS PERCENT AUTO 88 % (41-73); Platelet Count 329 K/mm3 (150-400); RDW Coefficient Variation 12.1 % (11.7-14.2); RDW Standard Deviation 38.9 fL (35.1-46.3); Red Blood Cell Count 4.24 M/mm3 (3.80-5.20); White Blood Cell Count 8.94 K/mm3 (4.00-11.30)
[2021-07-12 18:37] LABS: Alanine Aminotransfer (ALT/SGP 19 U/L (12-78); Albumin, Blood 3.7 g/dL (3.4-5.0); Alk Phos 71 U/L (50-136); Anion Gap 6 mmol/L (6-16); Aspartate Aminotrans (AST/SGOT 9 U/L (12-37); Bilirubin, Total 0.6 mg/dL (0.1-1.0); Blood Urea Nitrogen 12 mg/dL (8-24); Bun/Creatinine Ratio 25.2 (12.0-20.0); CO2, Blood 27 mmol/L (21-32); Calcium, Blood 8.7 mg/dL (8.5-10.1); Chloride, Blood 105 mmol/L (98-108); Creatinine, Blood 0.48 mg/dL (0.40-1.00); Globulin, Blood 3.8 g/dL (2.2-4.0); Glomerular Filtration Rate >60 (60-); Glucose, Blood 102 mg/dL (70-99); Potassium, Blood 3.5 mmol/L (3.5-5.5); Sodium, Blood 138 mmol/L (136-145); Total Protein, Blood 7.5 g/dL (6.4-8.2)
[2021-07-12 20:43] LABS: Source, Urine Clean Catch
[2021-07-12 20:48] LABS: Bilirubin, Urine Neg (Neg); Blood, Urine 2+ (Neg); Glucose Qualitative, Urine Neg (Neg); Ketones, Urine Neg (Neg); Leukocyte Esterase, Urine Neg (Neg); Nitrite, Urine Neg (Neg); Protein, Urine 1+ (Neg); Urobilinogen, Urine NORM (Normal); pH, Urine 6.5 (5.0-8.0)
[2021-07-12 20:56] LABS: Appearance, Urine Clear (Clear); Color, Urine Yellow (P-Yellow)
[2021-07-12 20:57] LABS: Bacteria Few /hpf; Mucus Heavy (0-Heavy); Squamous Epithelial Cells Few /hpf (Few); White Blood Cells, Urine 0-2 /hpf (0-5)
[2021-07-12] MEDS ORDERED: ZOLP5 PO (22:18)
[2021-07-13] MEDS ORDERED: TAMS.4ER PO (01:05)
[2021-07-13] MEDS ORDERED: ONDA4ODT MM (01:05)
== END 2021-07-13 01:30 | disposition home or self-care (01) ==
LOC: ER 16:40
PROVIDERS: Physician Assistant
DX: N20.0 Calculus of kidney (principal); Z88.8 Allergy status to other drugs, medicaments and biological substances
CPT/HCPCS: 80053; 81001; 81025; 83690; 85025; 96374; 96375; 99284-25; A9270; J1885; J2405; J7030

== ENCOUNTER → 2021-08-14 | Outpatient (CLI) | payer OTHER ==
[~2021-08-14] MED LIST changes: +TAMS.4ER PO; +ZOLP5 PO
[2021-08-14 13:54] LABS: Percent Saturation 16.6 % (15.0-50.0)
== END | disposition home or self-care (01) ==
LOC: LAB 10:45 → LAB SHORT 10:45
PROVIDERS: Internal Medicine Hematology & Oncology
DX: D50.0 Iron deficiency anemia secondary to blood loss (chronic) (principal)
CPT/HCPCS: 82728; 83540; 83550

== ENCOUNTER 2021-09-05 08:30 | Emergency (ER) | payer OTHER ==
[~2021-09-05] VITALS: Ht 162.6 cm; Wt 74.8 kg
[~2021-09-05 08:30] MED LIST changes: +ONDA4ODT SL
[2021-09-05 08:58] LABS: BASOPHILS ABSOLUTE AUTO 0.03 K/mm3 (0.00-0.23); BASOPHILS PERCENT AUTO 1 % (0-2); EOSINOPHILS ABSOLUTE AUTO 0.06 K/mm3 (0.00-0.68); EOSINOPHILS PERCENT AUTO 1 % (0-6); Hematocrit 34.9 % (33.0-51.0); Hemoglobin 11.3 g/dL (11.5-16.0); IMMATURE GRAN ABSOLUTE AUTO 0.01 K/mm3 (0.00-0.10); IMMATURE GRAN PERCENT AUTO 0 % (0-1); LYMPHOCYTES ABSOLUTE AUTO 1.58 K/mm3 (0.84-5.20); LYMPHOCYTES PERCENT AUTO 34 % (21-46); MONOCYTES ABSOLUTE AUTO 0.32 K/mm3 (0.16-1.47); MONOCYTES PERCENT AUTO 7 % (4-13); Mean Corpuscular HGB 28.6 pg (26.0-34.0); Mean Corpuscular HGB Conc 32.4 g/dL (31.5-36.5); Mean Corpuscular Volume 88 fL (80-100); Mean Platelet Volume 9.9 fL (9.1-12.4); NEUTROPHILS ABSOLUTE AUTO 2.69 K/mm3 (1.96-9.15); NEUTROPHILS PERCENT AUTO 57 % (41-73); Platelet Count 318 K/mm3 (150-400); RDW Coefficient Variation 12.3 % (11.7-14.2); RDW Standard Deviation 40.2 fL (35.1-46.3); Red Blood Cell Count 3.95 M/mm3 (3.80-5.20); White Blood Cell Count 4.69 K/mm3 (4.00-11.30)
[2021-09-05 09:16] LABS: Bun/Creatinine Ratio 10.4 (12.0-20.0); Calcium, Blood 9.1 mg/dL (8.5-10.1); Creatinine, Blood 0.48 mg/dL (0.40-1.00); Potassium, Blood 3.7 mmol/L (3.5-5.5)
== END 2021-09-05 10:30 | disposition home or self-care (01) ==
LOC: ER 08:30
PROVIDERS: Emergency Medicine
DX: K92.2 Gastrointestinal hemorrhage, unspecified (principal); D50.9 Iron deficiency anemia, unspecified; R10.814 Left lower quadrant abdominal tenderness; Z88.8 Allergy status to other drugs, medicaments and biological substances; Z79.899 Other long term (current) drug therapy
CPT/HCPCS: 36415; 80048; 85025; 96374; 96375; 99284-25; J2405; J3010; J7030

== ENCOUNTER 2022-01-11 18:35 | Emergency (ER) | payer OTHER ==
[~2022-01-11] VITALS: Ht 165.1 cm; Wt 63.5 kg
[2022-01-11] MEDS ORDERED: KETO10 PO (20:27)
[2022-01-11 20:37] LABS: Source, Urine Voided
[2022-01-11 20:42] LABS: Bilirubin, Urine Neg (Neg); Blood, Urine Neg (Neg); Glucose Qualitative, Urine Neg (Neg); Ketones, Urine Neg (Neg); Leukocyte Esterase, Urine 1+ (Neg); Nitrite, Urine Neg (Neg); Protein, Urine Neg (Neg); Urobilinogen, Urine NORM (Normal)
[2022-01-11 20:51] LABS: Appearance, Urine Clear (Clear); Color, Urine Yellow (P-Yellow)
[2022-01-11 20:53] LABS: Bacteria Few /hpf; Mucus Light (0-Heavy); Red Blood Cells, Urine Not Seen /hpf (0-2); Squamous Epithelial Cells Few /hpf (Few); White Blood Cells, Urine 0-2 /hpf (0-5)
[2022-01-15 11:09] LABS: LYME TOTAL ANTIBODY CIA Negative (Negative)
== END 2022-01-11 23:18 | disposition home or self-care (01) ==
LOC: ER 18:35
PROVIDERS: Emergency Medicine
DX: G43.909 Migraine, unspecified, not intractable, without status migrainosus (principal); Z88.8 Allergy status to other drugs, medicaments and biological substances; Z79.899 Other long term (current) drug therapy
CPT/HCPCS: 36415; 70450; 81001; 84703; 86618; 96374; 96375; 99284-25; A9270; J1885; J2550

== ENCOUNTER → 2022-01-21 | Outpatient (CLI) | payer OTHER ==
[2022-01-21 19:12] LABS: Albumin, Blood 4.3 g/dL (3.4-5.0); Albumin/Globulin Ratio 1.4 (0.8-1.8); Bilirubin, Total 0.3 mg/dL (0.1-1.0); Bun/Creatinine Ratio 14.3 (12.0-20.0); Calcium, Blood 9.4 mg/dL (8.5-10.1); Creatinine, Blood 0.42 mg/dL (0.40-1.00); Phosphorus, Blood 3.2 mg/dL (2.5-4.9); Potassium, Blood 4.3 mmol/L (3.5-5.5); Total Protein, Blood 7.3 g/dL (6.4-8.2)
== END | disposition home or self-care (01) ==
LOC: LAB 11:46 → LAB SHORT 11:46
PROVIDERS: Internal Medicine Hematology & Oncology
DX: D50.0 Iron deficiency anemia secondary to blood loss (chronic) (principal); M79.10 Myalgia, unspecified site; R53.83 Other fatigue; R61 Generalized hyperhidrosis
CPT/HCPCS: 80053; 82728; 83540; 83550; 83615; 84100; 85651

== ENCOUNTER 2022-05-22 06:25 | Emergency (ER) | payer OTHER ==
[~2022-05-22] VITALS: Ht 165.1 cm; Wt 68.0 kg
[2022-05-22] MEDS ORDERED: Adderall Xr 2020 MG PO (06:43)
[2022-05-22 07:01] LABS: BASOPHILS ABSOLUTE AUTO 0.01 K/mm3 (0.00-0.23); BASOPHILS PERCENT AUTO 0 % (0-2); EOSINOPHILS PERCENT AUTO 0 % (0-6); Hematocrit 30.7 % (33.0-51.0); Hemoglobin 10.2 g/dL (11.5-16.0); IMMATURE GRAN PERCENT AUTO 0 % (0-1); LYMPHOCYTES ABSOLUTE AUTO 0.51 K/mm3 (0.84-5.20); LYMPHOCYTES PERCENT AUTO 11 % (21-46); MONOCYTES PERCENT AUTO 4 % (4-13); Mean Corpuscular HGB 26.9 pg (26.0-34.0); Mean Corpuscular HGB Conc 33.2 g/dL (31.5-36.5); Mean Corpuscular Volume 81 fL (80-100); Mean Platelet Volume 9.7 fL (9.1-12.4); NEUTROPHILS ABSOLUTE AUTO 3.86 K/mm3 (1.96-9.15); NEUTROPHILS PERCENT AUTO 84 % (41-73); Platelet Count 287 K/mm3 (150-400); RDW Coefficient Variation 13.2 % (11.7-14.2); RDW Standard Deviation 38.8 fL (35.1-46.3); Red Blood Cell Count 3.79 M/mm3 (3.80-5.20); White Blood Cell Count 4.58 K/mm3 (4.00-11.30)
[2022-05-22 07:03] LABS: Source, Urine Clean Catch
[2022-05-22 07:11] LABS: Bilirubin, Urine Neg (Neg); Blood, Urine 2+ (Neg); Glucose Qualitative, Urine Neg (Neg); Ketones, Urine 2+ (Neg); Leukocyte Esterase, Urine Neg (Neg); Nitrite, Urine Neg (Neg); Protein, Urine 1+ (Neg); Urobilinogen, Urine NORM (Normal)
[2022-05-22 07:17] LABS: Color, Urine Yellow (P-Yellow)
[2022-05-22 07:18] LABS: Appearance, Urine Hazy (Clear); White Blood Cells, Urine Not Seen /hpf (0-5)
[2022-05-22 07:19] LABS: Bacteria Not Seen /hpf; Squamous Epithelial Cells Few /hpf (Few)
[2022-05-22 07:23] LABS: Albumin, Blood 3.7 g/dL (3.4-5.0); Albumin/Globulin Ratio 1.1 (0.8-1.8); Bilirubin, Total 0.6 mg/dL (0.1-1.0); Calcium, Blood 8.5 mg/dL (8.5-10.1); Creatinine, Blood 0.43 mg/dL (0.40-1.00); Globulin, Blood 3.5 g/dL (2.2-4.0); Potassium, Blood 3.1 mmol/L (3.5-5.5); Total Protein, Blood 7.2 g/dL (6.4-8.2)
[2022-05-22] MEDS ORDERED: TAMS.4ER PO (10:39)
[2022-05-22] MEDS ORDERED: ONDA4ODT MM (10:39)
[2022-05-22] MEDS ORDERED: Percocet 5-3251 EACH PO (10:39)
== END 2022-05-22 11:17 | disposition home or self-care (01) ==
LOC: ER 06:25
PROVIDERS: Emergency Medicine
DX: N20.0 Calculus of kidney (principal); Z87.442 Personal history of urinary calculi; F17.290 Nicotine dependence, other tobacco product, uncomplicated; Z88.8 Allergy status to other drugs, medicaments and biological substances; Z79.899 Other long term (current) drug therapy
CPT/HCPCS: 74177; 80053; 81001; 85025; 96361; 96374-59; 96375; 99284-25; J1885; J2405; J3010; J7030; Q9967

== ENCOUNTER 2022-05-25 11:48 | Emergency (ER) | payer OTHER ==
[~2022-05-25] VITALS: Ht 165.1 cm; Wt 68.0 kg
[~2022-05-25 11:48] MED LIST changes: +Adderall Xr 2020 MG PO
[2022-05-25 13:46] LABS: Source, Urine Voided
[2022-05-25 13:53] LABS: BASOPHILS ABSOLUTE AUTO 0.02 K/mm3 (0.00-0.23); BASOPHILS PERCENT AUTO 0 % (0-2); EOSINOPHILS ABSOLUTE AUTO 0.03 K/mm3 (0.00-0.68); EOSINOPHILS PERCENT AUTO 1 % (0-6); Hematocrit 31.3 % (33.0-51.0); Hemoglobin 10.3 g/dL (11.5-16.0); IMMATURE GRAN ABSOLUTE AUTO 0.01 K/mm3 (0.00-0.10); IMMATURE GRAN PERCENT AUTO 0 % (0-1); LYMPHOCYTES ABSOLUTE AUTO 1.13 K/mm3 (0.84-5.20); LYMPHOCYTES PERCENT AUTO 19 % (21-46); MONOCYTES ABSOLUTE AUTO 0.27 K/mm3 (0.16-1.47); MONOCYTES PERCENT AUTO 5 % (4-13); Mean Corpuscular HGB 26.9 pg (26.0-34.0); Mean Corpuscular HGB Conc 32.9 g/dL (31.5-36.5); Mean Corpuscular Volume 82 fL (80-100); Mean Platelet Volume 9.9 fL (9.1-12.4); NEUTROPHILS ABSOLUTE AUTO 4.41 K/mm3 (1.96-9.15); NEUTROPHILS PERCENT AUTO 75 % (41-73); Platelet Count 337 K/mm3 (150-400); RDW Coefficient Variation 13.1 % (11.7-14.2); RDW Standard Deviation 38.9 fL (35.1-46.3); Red Blood Cell Count 3.83 M/mm3 (3.80-5.20); White Blood Cell Count 5.87 K/mm3 (4.00-11.30)
[2022-05-25 13:55] LABS: Bilirubin, Urine Neg (Neg); Blood, Urine 1+ (Neg); Color, Urine Yellow (P-Yellow); Glucose Qualitative, Urine Neg (Neg); Ketones, Urine 1+ (Neg); Leukocyte Esterase, Urine Neg (Neg); Nitrite, Urine Neg (Neg); Protein, Urine 1+ (Neg); Specific Gravity, Urine 1.015 (1.003-1.022); Urobilinogen, Urine 1+ (Normal)
[2022-05-25 14:00] LABS: Albumin, Blood 3.6 g/dL (3.4-5.0); Bilirubin, Total 0.3 mg/dL (0.1-1.0); Bun/Creatinine Ratio 18.7 (12.0-20.0); Calcium, Blood 8.8 mg/dL (8.5-10.1); Creatinine, Blood 0.38 mg/dL (0.40-1.00); Globulin, Blood 3.6 g/dL (2.2-4.0); Potassium, Blood 3.5 mmol/L (3.5-5.5); Total Protein, Blood 7.2 g/dL (6.4-8.2)
[2022-05-25 14:03] LABS: Appearance, Urine Hazy (Clear)
[2022-05-25 14:04] LABS: Bacteria Many /hpf; Squamous Epithelial Cells Few /hpf (Few); White Blood Cells, Urine 0-2 /hpf (0-5)
[2022-05-25 14:05] LABS: Mucus Heavy (0-Heavy)
[2022-05-25] MEDS ORDERED: PROM25 PO (16:29)
== END 2022-05-25 16:41 | disposition home or self-care (01) ==
LOC: ER 11:48
PROVIDERS: Emergency Medicine
DX: R10.31 Right lower quadrant pain (principal); Z88.8 Allergy status to other drugs, medicaments and biological substances; Z79.899 Other long term (current) drug therapy
CPT/HCPCS: 36415; 74177; 80053; 81001; 81025; 83690; 85025; 87086; 96374-59; 96375; 99284-25; J1885; J2270; J2405; J7030; Q9967

== ENCOUNTER → 2022-06-02 | Outpatient (CLI) | payer OTHER ==
[2022-06-02 11:37] LABS: BASOPHILS ABSOLUTE AUTO 0.03 K/mm3 (0.00-0.23); BASOPHILS PERCENT AUTO 1 % (0-2); EOSINOPHILS ABSOLUTE AUTO 0.06 K/mm3 (0.00-0.68); EOSINOPHILS PERCENT AUTO 1 % (0-6); Hematocrit 33.9 % (33.0-51.0); Hemoglobin 10.9 g/dL (11.5-16.0); IMMATURE GRAN ABSOLUTE AUTO 0.01 K/mm3 (0.00-0.10); IMMATURE GRAN PERCENT AUTO 0 % (0-1); LYMPHOCYTES ABSOLUTE AUTO 1.74 K/mm3 (0.84-5.20); LYMPHOCYTES PERCENT AUTO 33 % (21-46); MONOCYTES ABSOLUTE AUTO 0.39 K/mm3 (0.16-1.47); MONOCYTES PERCENT AUTO 7 % (4-13); Mean Corpuscular HGB 26.6 pg (26.0-34.0); Mean Corpuscular HGB Conc 32.2 g/dL (31.5-36.5); Mean Corpuscular Volume 83 fL (80-100); Mean Platelet Volume 9.5 fL (9.1-12.4); NEUTROPHILS ABSOLUTE AUTO 3.03 K/mm3 (1.96-9.15); NEUTROPHILS PERCENT AUTO 58 % (41-73); Platelet Count 332 K/mm3 (150-400); RDW Coefficient Variation 13.2 % (11.7-14.2); RDW Standard Deviation 39.5 fL (35.1-46.3); White Blood Cell Count 5.26 K/mm3 (4.00-11.30)
[2022-06-02 11:52] LABS: Albumin, Blood 3.8 g/dL (3.4-5.0); Bilirubin, Total 0.2 mg/dL (0.1-1.0); Calcium, Blood 8.8 mg/dL (8.5-10.1); Creatinine, Blood 0.5 mg/dL (0.40-1.00); Magnesium, Blood 1.9 mg/dL (1.6-2.4); Total Protein, Blood 7.8 g/dL (6.4-8.2)
== END | disposition home or self-care (01) ==
LOC: LAB SHORT 11:30 → LAB 11:30
PROVIDERS: Physician Assistant
DX: R53.83 Other fatigue (principal)
CPT/HCPCS: 80053; 82607; 82746; 83735; 85025

== ENCOUNTER → 2022-11-21 | Outpatient (CLI) | payer OTHER ==
[2022-11-21 17:39] LABS: BASOPHILS ABSOLUTE AUTO 0.03 K/mm3 (0.00-0.23); BASOPHILS PERCENT AUTO 1 % (0-2); EOSINOPHILS ABSOLUTE AUTO 0.12 K/mm3 (0.00-0.68); EOSINOPHILS PERCENT AUTO 3 % (0-6); Hematocrit 35.2 % (33.0-51.0); Hemoglobin 12.1 g/dL (11.5-16.0); IMMATURE GRAN PERCENT AUTO 0 % (0-1); LYMPHOCYTES ABSOLUTE AUTO 0.91 K/mm3 (0.84-5.20); LYMPHOCYTES PERCENT AUTO 23 % (21-46); MONOCYTES ABSOLUTE AUTO 0.48 K/mm3 (0.16-1.47); MONOCYTES PERCENT AUTO 12 % (4-13); Mean Corpuscular HGB 29.6 pg (26.0-34.0); Mean Corpuscular HGB Conc 34.4 g/dL (31.5-36.5); Mean Corpuscular Volume 86 fL (80-100); Mean Platelet Volume 9.4 fL (9.1-12.4); NEUTROPHILS PERCENT AUTO 61 % (41-73); Platelet Count 260 K/mm3 (150-400); RDW Standard Deviation 40.7 fL (35.1-46.3); Red Blood Cell Count 4.09 M/mm3 (3.80-5.20); White Blood Cell Count 3.94 K/mm3 (4.00-11.30)
[2022-11-21 17:43] LABS: Bun/Creatinine Ratio 10.4 (12.0-20.0); Creatinine, Blood 0.67 mg/dL (0.40-1.00); Potassium, Blood 3.6 mmol/L (3.5-5.5)
== END ==
LOC: LAB SHORT 17:32 → LAB 17:32
PROVIDERS: Physician Assistant Surgical
DX: R00.2 Palpitations (principal)
CPT/HCPCS: 80048; 84443; 85025

== ENCOUNTER 2023-05-24 21:48 | Emergency (ER) | payer OTHER ==
[~2023-05-24] VITALS: Ht 167.6 cm; Wt 72.6 kg
[2023-05-25] MEDS ORDERED: Droperidol 5 mg/2 ml Vial IV ONE (01:25)
[2023-05-25 01:30] VITALS: BP 145/76
== END 2023-05-25 01:44 | disposition left against medical advice (07) ==
LOC: ER 21:48
DX: R11.2 Nausea with vomiting, unspecified (principal); Z53.29 Procedure and treatment not carried out because of patient's decision for other reasons
CPT/HCPCS: 96374; 99282-25; J1790

== ENCOUNTER → 2023-05-24 | Outpatient (CLI) | payer OTHER ==
[2023-05-24 13:11] LABS: BASOPHILS ABSOLUTE AUTO 0.02 K/mm3 (0.00-0.23); BASOPHILS PERCENT AUTO 0 % (0-2); EOSINOPHILS ABSOLUTE AUTO 0.15 K/mm3 (0.00-0.68); EOSINOPHILS PERCENT AUTO 2 % (0-6); Hematocrit 38.4 % (33.0-51.0); Hemoglobin 12.7 g/dL (11.5-16.0); IMMATURE GRAN ABSOLUTE AUTO 0.02 K/mm3 (0.00-0.10); IMMATURE GRAN PERCENT AUTO 0 % (0-1); LYMPHOCYTES ABSOLUTE AUTO 1.15 K/mm3 (0.84-5.20); LYMPHOCYTES PERCENT AUTO 19 % (21-46); MONOCYTES ABSOLUTE AUTO 0.29 K/mm3 (0.16-1.47); MONOCYTES PERCENT AUTO 5 % (4-13); Mean Corpuscular HGB 27.8 pg (26.0-34.0); Mean Corpuscular HGB Conc 33.1 g/dL (31.5-36.5); Mean Corpuscular Volume 84 fL (80-100); Mean Platelet Volume 10.1 fL (9.1-12.4); NEUTROPHILS ABSOLUTE AUTO 4.51 K/mm3 (1.96-9.15); NEUTROPHILS PERCENT AUTO 74 % (41-73); Platelet Count 329 K/mm3 (150-400); RDW Coefficient Variation 12.2 % (11.7-14.2); RDW Standard Deviation 36.7 fL (35.1-46.3); Red Blood Cell Count 4.57 M/mm3 (3.80-5.20); White Blood Cell Count 6.14 K/mm3 (4.00-11.30)
[2023-05-24 13:21] LABS: Albumin, Blood 4.4 g/dL (3.4-5.0); Albumin/Globulin Ratio 1.1 (0.8-1.8); Bilirubin, Total 0.4 mg/dL (0.1-1.0); Bun/Creatinine Ratio 17.4 (12.0-20.0); Calcium, Blood 9.3 mg/dL (8.5-10.1); Creatinine, Blood 0.69 mg/dL (0.40-1.00); Globulin, Blood 3.9 g/dL (2.2-4.0); Potassium, Blood 3.7 mmol/L (3.5-5.5); Total Protein, Blood 8.3 g/dL (6.4-8.2)
== END ==
LOC: LAB SHORT 13:04
PROVIDERS: Physician Assistant Surgical
DX: R11.2 Nausea with vomiting, unspecified (principal)
CPT/HCPCS: 80053; 83690; 85025

== ENCOUNTER 2023-12-01 09:06 | Emergency (ER) | payer OTHER ==
[~2023-12-01] VITALS: Ht 165.1 cm; Wt 65.8 kg
[2023-12-01] MEDS ORDERED: NS 1,000 ML IV SCH (09:20)
[2023-12-01] MEDS ORDERED: Ondansetron HCl 2 MG / ML 2ML Vial IV ONE (09:20)
[2023-12-01] MEDS ORDERED: Ketorolac Tromethamine 30mg Vial IV ONE (09:30)
[2023-12-01 09:51] LABS: BASOPHILS ABSOLUTE AUTO 0.02 K/mm3 (0.00-0.23); BASOPHILS PERCENT AUTO 0 % (0-2); EOSINOPHILS ABSOLUTE AUTO 0.03 K/mm3 (0.00-0.68); EOSINOPHILS PERCENT AUTO 0 % (0-6); Hematocrit 34.4 % (33.0-51.0); Hemoglobin 10.6 g/dL (11.5-16.0); IMMATURE GRAN ABSOLUTE AUTO 0.03 K/mm3 (0.00-0.10); IMMATURE GRAN PERCENT AUTO 0 % (0-1); LYMPHOCYTES ABSOLUTE AUTO 1.06 K/mm3 (0.84-5.20); LYMPHOCYTES PERCENT AUTO 13 % (21-46); MONOCYTES ABSOLUTE AUTO 0.34 K/mm3 (0.16-1.47); MONOCYTES PERCENT AUTO 4 % (4-13); Mean Corpuscular HGB 24.9 pg (26.0-34.0); Mean Corpuscular HGB Conc 30.8 g/dL (31.5-36.5); Mean Corpuscular Volume 81 fL (80-100); Mean Platelet Volume 9.8 fL (9.1-12.4); NEUTROPHILS ABSOLUTE AUTO 6.68 K/mm3 (1.96-9.15); NEUTROPHILS PERCENT AUTO 82 % (41-73); Platelet Count 383 K/mm3 (150-400); RDW Coefficient Variation 13.6 % (11.7-14.2); RDW Standard Deviation 39.8 fL (35.1-46.3); Red Blood Cell Count 4.25 M/mm3 (3.80-5.20); White Blood Cell Count 8.16 K/mm3 (4.00-11.30)
[2023-12-01 10:15] LABS: Albumin/Globulin Ratio 1.1 (0.8-1.8); Bilirubin, Total 0.4 mg/dL (0.1-1.0); Bun/Creatinine Ratio 16.7 (12.0-20.0); Calcium, Blood 8.8 mg/dL (8.5-10.1); Creatinine, Blood 0.54 mg/dL (0.40-1.00); Globulin, Blood 3.6 g/dL (2.2-4.0); Potassium, Blood 3.7 mmol/L (3.5-5.5); Total Protein, Blood 7.6 g/dL (6.4-8.2)
[2023-12-01] MEDS ORDERED: Metoclopramide HCl 5MG / ML 2ML Vial IV ONE (10:40)
[2023-12-01 11:06] VITALS: BP 116/68
[2023-12-01] MEDS ORDERED: PROM25 PO (11:11)
[2023-12-01] MEDS ORDERED: ONDA4ODT MM (11:11)
[2023-12-01] MEDS ORDERED: LOPE2C PO (11:11)
== END 2023-12-01 11:21 | disposition home or self-care (01) ==
LOC: ER 09:06
PROVIDERS: Emergency Medicine; Physician Assistant
DX: R11.2 Nausea with vomiting, unspecified (principal); R19.7 Diarrhea, unspecified; F43.10 Post-traumatic stress disorder, unspecified; Z79.899 Other long term (current) drug therapy; Z88.8 Allergy status to other drugs, medicaments and biological substances
CPT/HCPCS: 80053; 83690; 84703; 85025; 96361; 96374; 96375; 99284-25; J1885; J2405; J2765; J7030

== ENCOUNTER → 2024-07-28 | Outpatient (CLI) | payer OTHER ==
[~2024-07-28] MED LIST changes: +LOPE2C PO
[2024-07-28 12:59] LABS: BASOPHILS ABSOLUTE AUTO 0.04 K/mm3 (0.00-0.23); BASOPHILS PERCENT AUTO 1 % (0-2); EOSINOPHILS PERCENT AUTO 2 % (0-6); Hematocrit 30.6 % (33.0-51.0); Hemoglobin 9.4 g/dL (11.5-16.0); IMMATURE GRAN ABSOLUTE AUTO 0.01 K/mm3 (0.00-0.10); IMMATURE GRAN PERCENT AUTO 0 % (0-1); LYMPHOCYTES ABSOLUTE AUTO 1.43 K/mm3 (0.84-5.20); LYMPHOCYTES PERCENT AUTO 28 % (21-46); MONOCYTES ABSOLUTE AUTO 0.37 K/mm3 (0.16-1.47); MONOCYTES PERCENT AUTO 7 % (4-13); Mean Corpuscular HGB 23.9 pg (26.0-34.0); Mean Corpuscular HGB Conc 30.7 g/dL (31.5-36.5); Mean Corpuscular Volume 78 fL (80-100); NEUTROPHILS ABSOLUTE AUTO 3.23 K/mm3 (1.96-9.15); NEUTROPHILS PERCENT AUTO 62 % (41-73); Platelet Count 418 K/mm3 (150-400); RDW Coefficient Variation 14.8 % (11.7-14.2); Red Blood Cell Count 3.94 M/mm3 (3.80-5.20); White Blood Cell Count 5.18 K/mm3 (4.00-11.30)
[2024-07-28 13:04] LABS: Bun/Creatinine Ratio 16.7 (12.0-20.0); Calcium, Blood 8.8 mg/dL (8.5-10.1); Creatinine, Blood 0.54 mg/dL (0.40-1.00); Potassium, Blood 4.1 mmol/L (3.5-5.5)
== END ==
LOC: LAB 12:55 → LAB SHORT 12:55
PROVIDERS: Physician Assistant
DX: R22.43 Localized swelling, mass and lump, lower limb, bilateral (principal)
CPT/HCPCS: 80048; 85025

== ENCOUNTER → 2024-12-14 | Outpatient (CLI) | payer OTHER ==
[2024-12-15 17:16] LABS: Ferritin, Serum 6.0 ng/mL (8-252); Total Iron Binding Capacity 488.0 ug/dL (250-450)
== END ==
LOC: LAB 11:40 → LAB SHORT 11:40
PROVIDERS: Physician Assistant
DX: D50.8 Other iron deficiency anemias (principal); E53.8 Deficiency of other specified B group vitamins
CPT/HCPCS: 82607; 82728; 82746; 83540; 83550